=== PATIENT | male | born 2000 | race African-American/Black ===

== ENCOUNTER 2024-12-13 13:42 | Emergency (ER) | payer OTHER ==
[2024-12-13 13:49] VITALS: RESP 18; BMI 19.8
[2024-12-13] MEDS ORDERED: DIPHTH,PERTUSS(ACELL),TET 0.5 ML DISP.SYRIN IM ONE (15:20)
[2024-12-13] MEDS ORDERED: BUPIVACAINE HCL/PF 0.5% (5MG/ML) 10 ML VIAL ONE (15:20)
[2024-12-13] MEDS: BUPIVACAINE HCL/PF 0.5% (5 MG/ML) 30 ML VIAL IJ ONE (15:28)
[2024-12-13] MEDS: DIPHTH,PERTUSS(ACELL),TET 0.5 ML DISP.SYRIN IM ONE (15:44)
[2024-12-13] MEDS ORDERED: AMOX TR/POT CLAV 875MG/125MG TABLETS (FP) ONE (17:34)
[2024-12-13] MEDS: AMOX TR/POT CLAV 875MG/125MG TABLETS (FP) PO ONE (17:41)
[2024-12-13 19:46] VITALS: BP 112/72; PULSE 68; TEMP 97.9
== END 2024-12-13 19:46 | disposition home or self-care (01) ==
LOC: JERFT 13:42
PROC: 0HQFXZZ Repair Right Hand Skin, External Approach (ICD-10-PCS; principal; 2024-12-13)
PROC: 0H9QXZZ Drainage of Finger Nail, External Approach (ICD-10-PCS; 2024-12-13)
PROC: 3E0234Z Introduction of Serum, Toxoid and Vaccine into Muscle, Percutaneous Approach (ICD-10-PCS; 2024-12-13)
PROC: 0H9QXZZ Drainage of Finger Nail, External Approach (ICD-10-PCS; 2024-12-13)
DX: S61.111A Laceration without foreign body of right thumb with damage to nail, initial encounter (principal); S61.310A Laceration without foreign body of right index finger with damage to nail, initial encounter; Z23 Encounter for immunization; W26.8XXA Contact with other sharp object(s), not elsewhere classified, initial encounter; Y93.G1 Activity, food preparation and clean up; Y99.0 Civilian activity done for income or pay
CPT/HCPCS: 73130-TC-RT-FY; 90715; 99284-25